=== PATIENT | female | born 1940 | race Caucasian/White ===

== ENCOUNTER 2019-06-22 10:28 | Outpatient (CLI) | payer MEDICARE, OTHER | END 2019-06-22 23:59 | disposition home or self-care (01) | LOC: CFH 10:28 | PROVIDERS: ATTEND Family Medicine | DX: M85.88 Other specified disorders of bone density and structure, other site (principal) | CPT/HCPCS: 77080 ==

== ENCOUNTER → 2019-12-04 | Outpatient (CLI) | payer MEDICARE ==
[~2019-12-04] MED LIST: REGADENOSON 0.4 MG/5 ML SYRINGE ONE
== END | disposition home or self-care (01) ==
LOC: CFH 08:02
PROVIDERS: ATTEND Family Medicine
DX: R07.2 Precordial pain (principal)
CPT/HCPCS: 78452; 93017; A9502; J2785

== ENCOUNTER → 2019-12-20 | Outpatient (CLI) | payer MEDICARE ==
[~2019-12-20] MED LIST changes: +GADOTERATE 7.5 MMOL/15 ML SYR ONE; -REGADENOSON 0.4 MG/5 ML SYRINGE ONE
== END | disposition home or self-care (01) ==
LOC: RAD 15:38
PROVIDERS: ATTEND Internal Medicine Hematology & Oncology
DX: C91.41 Hairy cell leukemia, in remission (principal); G31.9 Degenerative disease of nervous system, unspecified; G93.89 Other specified disorders of brain
CPT/HCPCS: 70553; A9575

== ENCOUNTER 2020-03-13 07:05 | Day surgery (SDC) | payer MEDICARE ==
[~2020-03-13] VITALS: Ht 167.6 cm; Wt 61.6 kg
[2020-03-13 07:52] VITALS: BP 121/71
[2020-03-13] MEDS ORDERED: SODIUM CHLORIDE 0.9% 1,000 ML IV SCH (08:00)
[2020-03-13 08:11] LABS: BASOPHILS % (AUTO) 1 % (0-1); EOSINOPHILS % (AUTO) 9 % (1-7); LYMPHOCYTES % (AUTO) 14 % (22-44); MEAN CORPUSCULAR HEMOGLOBIN 35.2 pg (27.0-34.8); MEAN CORPUSCULAR HGB CONC 33.5 g/dL (32.4-35.8); MEAN PLATELET VOLUME 8.8 fL (7.4-10.4); MONOCYTES % (AUTO) 12 % (2-9); NEUTROPHILS % (AUTO) 64 % (42-75); PLATELET COUNT 155 x10^3/uL (130-400); RED BLOOD COUNT 4.15 x10^6/uL (3.82-5.3); RED CELL DISTRIBUTION WIDTH 14.1 % (9.6-15.2)
[2020-03-13] MEDS ORDERED: CARV-39 PO (08:11)
[2020-03-13] MEDS ORDERED: SIMV10TA18 PO (08:11)
[2020-03-13] MEDS ORDERED: BIOT25005 PO (08:11)
[2020-03-13] MEDS ORDERED: [UNRECOGNIZED DRUG - OTHER] PO (08:11)
[2020-03-13] MEDS ORDERED: DOCU100C33 PO (08:11)
[2020-03-13] MEDS ORDERED: PREG75CA PO (08:11)
[2020-03-13] MEDS ORDERED: DIVA250T14 PO (08:11)
[2020-03-13] MEDS ORDERED: CALCIUM PO (08:11)
[2020-03-13] MEDS ORDERED: LANTAPROST EACHEYE (08:11)
[2020-03-13] MEDS ORDERED: ONDA8TAB18 PO (08:11)
[2020-03-13] MEDS ORDERED: RIVA20TA PO (08:11)
[2020-03-13] MEDS ORDERED: COQ10 PO (08:11)
[2020-03-13] MEDS ORDERED: MVI PO (08:11)
[2020-03-13] MEDS ORDERED: ZOLP5TAB6 PO (08:11)
[2020-03-13] MEDS ORDERED: LOSA100T14 PO (08:11)
[2020-03-13] MEDS ORDERED: MIRA25TA PO (08:11)
[2020-03-13] MEDS ORDERED: DIPHENOXYLATE PO (08:11)
[2020-03-13] MEDS ORDERED: [UNRECOGNIZED DRUG - OTHER] EACHEYE (08:11)
[2020-03-13 08:22] LABS: MD NO
[2020-03-13] MEDS ORDERED: FENTANYL PF 100 MCG/2ML ONE (09:06)
[2020-03-13] MEDS ORDERED: MIDAZOLAM 1 MG/ML, 5ML ONE (09:06)
[2020-03-13] MEDS ORDERED: FLUMAZENIL 0.1 MG/1 ML, 5ML ONE (09:07)
[2020-03-13] MEDS ORDERED: NALOXONE 1 MG/ML, 2ML ONE (09:07)
== END 2020-03-13 11:30 | disposition home or self-care (01) ==
LOC: OUT 07:05
PROVIDERS: ATTEND Internal Medicine Hematology & Oncology
DX: C91.41 Hairy cell leukemia, in remission (principal); I48.91 Unspecified atrial fibrillation; I10 Essential (primary) hypertension; Z79.01 Long term (current) use of anticoagulants; Z79.899 Other long term (current) drug therapy; Z88.8 Allergy status to other drugs, medicaments and biological substances; Z92.21 Personal history of antineoplastic chemotherapy
CPT/HCPCS: 36415; 38222; 77012; 85025; 85060; 85097; 88184; 88185; 88237; 88264; 88280; 88305; 88311; 88313; 88341; 88342; 99156; 99157; J2250; J3010; J2310

== ENCOUNTER → 2020-08-27 | Outpatient (CLI) | payer MEDICARE ==
[~2020-08-27] MED LIST changes: +BIOT25005 PO; +CALCIUM PO; +CARV-39 PO; +COQ10 PO; +DIPHENOXYLATE PO; +DIVA250T14 PO; +DOCU100C33 PO; -GADOTERATE 7.5 MMOL/15 ML SYR ONE; +LANTAPROST EACHEYE; +LOSA100T14 PO; +MIRA25TA PO; +MVI PO; +ONDA8TAB18 PO; +PREG75CA PO; +REGADENOSON 0.4 MG/5 ML SYRINGE ONE; +RIVA20TA PO; +SIMV10TA18 PO; +ZOLP5TAB6 PO; +[UNRECOGNIZED DRUG - OTHER] EACHEYE; +[UNRECOGNIZED DRUG - OTHER] PO
== END | disposition home or self-care (01) ==
LOC: CFH 08:15
PROVIDERS: ATTEND Internal Medicine
DX: I10 Essential (primary) hypertension (principal); I48.91 Unspecified atrial fibrillation; J96.01 Acute respiratory failure with hypoxia; Z79.899 Other long term (current) drug therapy
CPT/HCPCS: 78452; 93017; A9502; J2785